=== PATIENT | male | born 1970 | race Caucasian/White ===

== ENCOUNTER 2018-04-28 08:45 | Emergency (ER) | payer BC, OTHER ==
[2018-04-28 09:02] VITALS: BP 132/77
--- NOTE | 2018-04-28 09:33 | UC ---
Respiratory Complaint HPI - HPI Summary HPI Summary: Patient presents to with complaints of progressive congestion cough for 10 days. Patient states he has asthma gets worse when he has a cold. Patient's been using his albuterol twice a day with little improvement. Patient states his. His sputum is mostly green. No blood. Patient states he can hear himself wheezing at times. Last MDI was this morning. Patient was using Mucinex earlier in his course but has not taken it since. No fevers. No nausea vomiting. Patient does report some nasal congestion, postnasal drip, and frontal sinus discomfort. Patient states his appetite has been a little less. Patient never been hospitalized due to asthma. Patient has prednisone was more than a year ago. Patient does have basilar approximately 6 months ago. Patient does not take allergy medication Patient's medications reviewed this visit - History of Current Complaint Chief Complaint: UCRespiratory Stated Complaint: CHEST CONGESTION Time Seen by Provider: 04/28/18 09:30 Hx Obtained From: Patient Pain Intensity: 0 Pain Scale Used: 0-10 Numeric Character: Cough: Productive - Allergies/Home Medications Allergies/Adverse Reactions: Allergies Allergy/AdvReac Type Severity Reaction Status Date / Time No Known Allergies Allergy Verified 04/28/18 08:58 Home Medications: Home Medications Albuterol HFA INHALER* [Ventolin HFA Inhaler*] 2 puff INH Q6H PRN 04/28/18 [ History Confirmed 04/28/18] Ibuprofen TAB* [Advil TAB*] 800 mg PO Q6H PRN 04/28/18 [History Confirmed ] PMH/Surg Hx/FS Hx/Imm Hx Previously Healthy: Yes Respiratory History: Asthma - Surgical History Surgical History: Yes Surgery Procedure, Year, and Place: back surgery x2. sinus surgery - Family History Known Family History: Positive: Hypertension - Social History Occupation: Employed Full-time Lives: With Family Alcohol Use: Rare Substance Use Type: None Smoking Status (MU): Never Smoked Tobacco Review of Systems Constitutional: Negative ENT: Sinus Congestion Respiratory: Cough, Other - wheeze All Other Systems Reviewed And Are Negative: Yes Physical Exam - Summary Physical Exam Summary: Vital Signs Reviewed: Yes A+Ox3, no distress Eyes: Conjunctiva Clear, CAL. EOM intact and full ENT: Hearing grossly normal TM x 2 clear, turbinates boggy, +PND mmoist, uvula midline, no exudate, no erythema Neck: Positive: Supple Respiratory: Positive: + BS throughout + scattered wheeze. intermitent coug W wheezing L>R diffuse Cardiovascular: RRR nl s1, s2 no m/r CBT <2 sec abd soft + BS nt/nd no guarding, no distension Musculoskeletal Exam: WAY x 4 without difficulty Strength Intact, ROM Intact Neurological: Positive: Alert, + sensation throughout Psychological: Positive: Normal Response To Family Skin: Positive: no rash, no ecchymosis Triage Information Reviewed: Yes Vital Signs: Initial Vital Signs Temp 99.0 F 04/28/18 08:56 Pulse 72 04/28/18 08:56 Resp 17 04/28/18 08:56 BP 132/77 04/28/18 08:56 Pulse Ox 98 04/28/18 08:56 Diagnostic Evaluation - Laboratory O2 Sat by Pulse Oximetry: 98 Re-Evaluation - Re-Evaluation First Eval Change: Improved - Wheezing improved Patient's daughter has a nebulizer machine we'll send him home with tubing from here recommended nebulizer every 4-6 hours today and tomorrow and then as needed Reviewed secretions precautions with patient Abx until gone Return precautions discussed Respiratory Course/Dx - Course Course Of Treatment: Patient presents with 10 days progressive congestion cough now with green sputum. Patient with wheezing left greater than right. Symptoms improved well send home with nebulizer albuterol and tubing as patient has machine at home. Anticipate antibiotics. We'll discuss with patient regarding steroids. Pt comfortable in agreement with plan - Differential Dx/Diagnosis Provider Diagnoses: bronchitis Discharge - Sign-Out/Discharge Documenting (check all that apply): Discharge/Admit/Transfer - Discharge Plan Condition: Stable Disposition: HOME Prescriptions: Albuterol 2.5MG/3ML (0.083%)* [Ventolin 2.5 MG/3 ML NEB.KAHLIL*] 2.5 mg INH Q4H # 30 neb.kahlil DOXYcycline CAP(*) [DOXYcycline 100MG CAP(*)] 100 mg PO BID #20 cap predniSONE TAB* [Deltasone TAB*] 50 mg PO DAILY #5 tab Patient Education Materials: Acute Bronchitis (ED) Referrals: Jose Murray DO [Primary Care Provider] - Additional Instructions: - Take antibiotics and prednisone exactly as prescribed until gone -Use your albuterol puffer/nebulizer 4-6 hours for the next 2 days - then as needed -Stay well hydrated - avoid excess caffeine and all alcohol - eat regular, healthy meals - These infections are spread by oral secretions. Do not share eating or drinking utensils. Frequent hand washing is important. Clean items that may get your secretions on them such as cell phones, ipads, computer mouse, television remotes. Once you have been on antbiotics for 2 days, change your pillowcase and your toothbrush -Contact your doctor to arrange a follow-up appointment this week. Call your doctor, return here or go to the emergency department with any questions or concerns ent with any questions or concerns - Billing Disposition and Condition Condition: STABLE Disposition: Home
[2018-04-28] MEDS ORDERED: Albuterol/Ipratropium NEB.SOL* Albuterol 2.5 MG/Ipratropium 0.5 MG 3 ML INH ONE (09:39)
== END 2018-04-28 10:14 | disposition home or self-care (01) ==
LOC: UCCORT 08:45
DX: J45.909 Unspecified asthma, uncomplicated (principal)
CPT/HCPCS: 99212; A9270-GY; G0463